=== PATIENT | male | born 1950 | race Caucasian/White ===

== ENCOUNTER 2024-09-08 07:51 | Outpatient (CLI) | payer MEDICARE, OTHER, SELFPAY ==
--- NOTE | 2024-09-08 08:55 | P.ANES_ITS ---
Anesthesia Charges Start Date/Time Anesthesia Start Date: 09/08/24 Anesthesia Start Time: 08:42 Stop Date/Time Anesthesia Stop Date: 09/08/24 Anesthesia Stop Time: 09:10 Summary Extremes of Age - Over 70 or under 1: MDA Coding CPT Codes CPT Codes: ANES LWR INTST SCR COLSC - 95184 ([id number]) P2 - PATIENT W/MILD SYST DISEASE, QK - COMPUTER TEACHER 2-4 CNCRNT ANES PROC, QX - FUN HOUSE ATTENDANT SVC W/ MD MED DIRECTION Additional Codes: Summary - Extremes of Age - Over 70 or under 1: MDA ([id number])
--- NOTE | 2024-09-08 08:55 | W.ANESCHARGE ---
Anesthesia Charges Start Date/Time Anesthesia Start Date: 09/08/24 Anesthesia Start Time: 08:42 Stop Date/Time Anesthesia Stop Date: 09/08/24 Anesthesia Stop Time: 09:10 Summary Extremes of Age - Over 70 or under 1: MDA Coding CPT Codes CPT Codes: ANES LWR INTST SCR COLSC - 35008 ([id number]) P2 - PATIENT W/MILD SYST DISEASE, QK - COMMODITY DIRECTOR 2-4 CNCRNT ANES PROC, QX - ECHO VASCULAR TECH SVC W/ MD MED DIRECTION Additional Codes: Summary - Extremes of Age - Over 70 or under 1: MDA ([id number])
--- NOTE | 2024-09-08 09:11 | P.ANES_ITS ---
Anesthesia Charges Start Date/Time Anesthesia Start Date: 09/08/24 Anesthesia Start Time: 08:42 Stop Date/Time Anesthesia Stop Date: 09/08/24 Anesthesia Stop Time: 09:10 Summary Extremes of Age - Over 70 or under 1: MUD JACK NOZZLEMAN Coding CPT Codes CPT Codes: ANEJoselin LWR INTST SCR COLSC - 44209 ([id number]) P2 - PATIENT W/MILD SYST DISEASE, QX - MUD JACK NOZZLEMAN SVC W/ MD MED DIRECTION, QK - MANAGER LSW 2-4 CNCRNT ANES PROC Additional Codes: Summary - Extremes of Age - Over 70 or under 1: MUD JACK NOZZLEMAN ([id number])
--- NOTE | 2024-09-08 09:11 | W.ANESCHARGE ---
Anesthesia Charges Start Date/Time Anesthesia Start Date: 09/08/24 Anesthesia Start Time: 08:42 Stop Date/Time Anesthesia Stop Date: 09/08/24 Anesthesia Stop Time: 09:10 Summary Extremes of Age - Over 70 or under 1: SAND PLANT ATTENDANT Coding CPT Codes CPT Codes: ANEJoselin LWR INTST SCR COLSC - [id number] ([id number]) P2 - PATIENT W/MILD SYST DISEASE, QX - SAND PLANT ATTENDANT SVC W/ MD MED DIRECTION, QK - CATH LABORATORY TECHNICIAN 2-4 CNCRNT ANES PROC Additional Codes: Summary - Extremes of Age - Over 70 or under 1: SAND PLANT ATTENDANT ([id number])
== END 2024-09-08 07:52 | disposition home or self-care (01) ==
PROVIDERS: PCP Family Medicine; Visit Provider Internal Medicine Gastroenterology
DX: Z12.11 Encounter for screening for malignant neoplasm of colon (principal); Z86.0101 Personal history of adenomatous and serrated colon polyps; Q43.8 Other specified congenital malformations of intestine
CPT/HCPCS: 00812; 45378; 99100; J2704